=== PATIENT | male | born 1985 ===

== ENCOUNTER 2016-10-11 19:48 | Emergency (ER) | payer MEDICAID, SELFPAY ==
[2016-10-11 20:19] VITALS: RESP 16; O2SAT 99
[2016-10-11] MEDS ORDERED: Sodium Chloride 0.9% 1,000 ML IV STA (21:27)
--- NOTE | 2016-10-11 21:33 | ED PDOC ---
HPI: Abdomen Time Seen by Provider: 10/11/16 21:12 Chief Complaint (Nursing): Abdominal Pain Chief Complaint (Provider): Abdominal pain History Per: Patient History/Exam Limitations: no limitations Onset/Duration Of Symptoms: Days (4) Outside of [place] travel?: No Current Symptoms Are (Timing): Still Present Location Of Pain/Discomfort: Diffuse Associated Symptoms: Diarrhea (bloody) Additional History Per: Patient Additional Complaint(s): The patient is a 31yo male, past medical history of HIV+, presents to the ED for evaluation of abdominal pain with associated fever and bloody diarrhea present for the past 4 days. Patient denies any associated vomiting. No other medical complaints. Past Medical History Reviewed: Historical Data, Nursing Documentation, Vital Signs Vital Signs: Last Vital Signs Temp 98.7 F 10/11/16 20:15 Pulse 95 H 10/11/16 20:15 Resp 16 10/11/16 20:15 BP 119/76 10/11/16 20:15 Pulse Ox 99 10/11/16 23:23 - Medical History PMH: HIV - Surgical History Surgical History: No Surg Hx - Family History Family History: States: Unknown Family Hx - Home Medications Home Medications: Ambulatory Orders Medication Instructions Recorded Ciprofloxacin [Cipro] 500 mg PO BID #20 11/23/13 Ibuprofen 600 mg PO Q6 PRN #15 tab 11/23/13 Amoxicillin/Clavulanate [Augmentin 1 tab PO BID #14 tab 11/23/14 875 MG-125 MG] Ibuprofen [Motrin] 600 mg PO Q6H PRN #15 tab 11/23/14 Amoxicillin [Amoxil] 875 mg PO BID #14 tab 02/15/15 Ciprofloxacin HCl [Cipro] 500 mg PO BID #20 tab 10/12/16 Dicyclomine [Dicyclomine HCl] 10 mg PO TID #10 cap 10/12/16 Metronidazole [Flagyl] 500 mg PO Q8 #30 tablet 10/12/16 - Allergies Allergies/Adverse Reactions: Allergies Allergy/AdvReac Type Severity Reaction Status Date / Time No Known Allergies Allergy Verified 11/23/14 14:47 Review of Systems ROS Statement: Except As Marked, All Systems Reviewed And Found Negative Constitutional: Positive for: Fever Gastrointestinal: Positive for: Abdominal Pain, Diarrhea (bloody). Negative for : Vomiting Physical Exam - Reviewed Nursing Documentation Reviewed: Yes Vital Signs Reviewed: Yes - Physical Exam Appears: Positive for: Well, Non-toxic, No Acute Distress Head Exam: Positive for: ATRAUMATIC, NORMAL INSPECTION, NORMOCEPHALIC Skin: Positive for: Normal Color, Warm, DRY Eye Exam: Positive for: Normal appearance Neck: Positive for: Normal, Supple Cardiovascular/Chest: Positive for: Regular Rate, Rhythm Respiratory: Positive for: Normal Breath Sounds. Negative for: Respiratory Distress Gastrointestinal/Abdominal: Positive for: Soft, Tenderness (mild periumbilical tenderness) Extremity: Positive for: Normal ROM. Negative for: Deformity Neurologic/Psych: Positive for: Alert, Oriented. Negative for: Motor/Sensory Deficits - Laboratory Results Result Diagrams: 10/11/16 21:55 10/11/16 21:55 - ECG O2 Sat by Pulse Oximetry: 99 (RA) Pulse Ox Interpretation: Normal - Progress Re-evaluation Time: 00:04 Condition: Improved Medical Decision Making Medical Decision Making: Time: 2119 Impression: Abdominal pain with associated episodes of bloody diarrhea Plan: -- Labs -- IV Fluids -- CT AP -- Bentyl 10 mg PO Reassess Scribe Attestation: Documented by Maryan Garcia acting as a scribe for Woody Alvarez MD. Provider Attestation: All medical record entries made by the Scribe were at my direction and personally dictated by me. I have reviewed the chart and agree that the record accurately reflects my personal performance of the history, physical exam, medical decision making, and the department course for this patient. I have also personally directed, reviewed, and agree with the discharge instructions and disposition. Disposition - Clinical Impression Clinical Impression: Colitis - Patient ED Disposition Is Patient to be Admitted: No Counseled Patient/Family Regarding: Studies Performed, Diagnosis, Need For Followup, Rx Given - Disposition Referrals: [facility] [Outside] Michael Ramos MD [Staff Provider] - Disposition: Routine/Home Disposition Time: 00:05 Condition: FAIR Prescriptions: Ciprofloxacin HCl [Cipro] 500 mg PO BID #20 tab Dicyclomine [Dicyclomine HCl] 10 mg PO TID #10 cap Metronidazole [Flagyl] 500 mg PO Q8 #30 tablet Instructions: Colitis (ED)
[2016-10-11 22:07] LABS: BASO % 0.5 % (0.0-2.0); EOS % 0.4 % (0.0-4.0); HEMOGLOBIN 15.1 g/dL (12.0-18.0); LYMPH # 1.4 K/uL (1.0-4.3); LYMPH % 17.2 % (20.0-40.0); MEAN CELL VOLUME 94.8 fl (80.0-94.0); MEAN CORPUSCULAR HEMOGLOBIN 32.1 pg (27.0-31.0); MEAN CORPUSCULAR HGB CONC 33.9 g/dL (33.0-37.0); MEAN PLATELET VOLUME 8.3 fl (7.2-11.7); MONO # 2.6 K/uL (0.0-0.8); MONO % 32.8 % (0.0-10.0); NEUT # 3.9 K/uL (1.8-7.0); NEUT % 49.1 % (50.0-75.0); PLATELET COUNT 201 K/uL (130-400); RBC 4.69 Mil/uL (4.40-5.90); RED CELL DISTRIBUTION WIDTH 13.6 % (11.5-14.5); WHITE BLOOD COUNT 7.9 K/uL (4.8-10.8)
[2016-10-11 22:11] LABS: ALB/GLOB RATIO 1.4 (1.0-2.1); ALBUMIN 3.9 g/dL (3.5-5.0); ALT/SGPT 42 U/L (21-72); AST/SGOT 25 U/L (17-59); BLOOD UREA NITROGEN 16 mg/dl (9-20); CALCIUM 8.6 mg/dL (8.4-10.2); GFR AFRICAN-AMERICAN > 60; GFR NON-AFRICAN AMERICAN > 60
[2016-10-11] MEDS ORDERED: Iohexol 300 50 ML ONE (22:11)
[2016-10-11] MEDS ORDERED: Sodium Chloride 0.9% 50 ML IV ONE (22:12)
--- NOTE | 2016-10-11 23:17 | CT ---
EXAM: CT Abdomen and Pelvis With Intravenous Contrast CLINICAL HISTORY: 31 years old, male; Pain; Abdominal pain; Generalized; Additional info: Abd pain fever hematochezia TECHNIQUE: Axial computed tomography images of the abdomen and pelvis with intravenous contrast. This CT exam was performed using one or more of the following dose reduction techniques: automated exposure control, adjustment of the mA and/or kV according to patient size, and/or use of iterative reconstruction technique. Coronal and sagittal reformatted images were created and reviewed. CONTRAST: 95 mL of [id number] administered intravenously. COMPARISON: CT ABD 07/26/2012 11:12:53 PM FINDINGS: Lower thorax: Trace right basilar atelectasis. ABDOMEN: Liver: No acute findings. Gallbladder and bile ducts: The gallbladder is only minimally distended, without calcified stones. No significant intra- or extrahepatic biliary ductal dilation. Pancreas: Enhances homogeneously. No ductal dilation. No discrete mass. Spleen: No acute findings. Adrenals: No acute findings. Kidneys and ureters: No acute findings. No hydronephrosis or renal calculi. No discrete solid mass. PELVIS: Bladder: No acute findings. Reproductive: No acute findings. Appendix: The appendix is of normal caliber (series 3, image 141; series 601, image 48) . ABDOMEN and PELVIS: Stomach and bowel: No obstruction. Hyperemic mural thickening is identified within the colon, with surrounding inflammatory change. These findings are most prominent in the descending and sigmoid colons. Peritoneum: As above. Lymph nodes: Minimally enlarged lymph nodes are identified within the retroperitoneum, in the root of the mesentery. Vasculature: Unremarkable. Bones: No acute fracture. IMPRESSION: Findings consistent with a pancolitis, as detailed above.
[2016-10-12 00:51] VITALS: BP 135/80; PULSE 85; TEMP 98.1
[2016-10-12 02:02] LABS: BANDS 5 % (0-2); LYMPHOCYTE 34 % (20-50); MONOCYTE 19 % (0-10); NEUTROPHIL 39 % (42-75); REACTIVE LYMPHOCYTES 3 % (0-0); TOTAL CELLS COUNTED 100
[2016-10-12 02:03] LABS: ANISOCYTOSIS SLIGHT; HYPOCHROMIC SLIGHT; PLATELET ESTIMATE NORMAL (NORMAL); STOMATOCYTES SLIGHT
== END 2016-10-12 01:04 | disposition home or self-care (01) ==
LOC: H.ER 19:48
DX: K52.9 Noninfective gastroenteritis and colitis, unspecified (principal); B20 Human immunodeficiency virus [HIV] disease